=== PATIENT | female | born 1955 | race Caucasian/White ===

== ENCOUNTER 2023-04-17 17:35 | Inpatient (IN) | payer OTHER ==
[~2023-04-17] VITALS: Wt 118.4 kg
[2023-04-17 19:27] LABS: HEMATOCRIT 41.1 % (37.0-47.0); MANUAL DIFF REFLEX YES; MEAN CELL VOLUME 101.5 fl (81.0-99.0); MEAN CORPUSCULAR HGB 31.4 pg (27.0-31.0); MEAN CORPUSCULAR HGB CONC 30.9 g/dl (33.0-37.0); MEAN PLATELET VOLUME 11.7 fl (9.6-12.3); PLATELET COUNT AUTOMATED 197 10*3/uL (130-400); RED BLOOD COUNT 4.05 10*6/uL (4.10-5.10); RED CELL DISTRI WIDTH 16.9 % (0-14.5); WHITE BLOOD COUNT 8.6 10*3/uL (4.8-10.8)
[2023-04-17 19:30] VITALS: BP 169/72
[2023-04-17] MEDS ORDERED: IBUPROFEN600 MG PO (19:31)
[2023-04-17] MEDS ORDERED: Bactroban Oint22 GM NAS (19:32)
[2023-04-17] MEDS ORDERED: METHOCARBAMOL500 M1 PO (19:33)
[2023-04-17] MEDS ORDERED: ATORVASTATIN CA20 M1 PO (19:33)
[2023-04-17] MEDS ORDERED: ANASTROZOLE1 M1 PO (19:34)
[2023-04-17] MEDS ORDERED: LEVOTHYROXINE125 MCG PO (19:35)
[2023-04-17] MEDS ORDERED: MELOXICAM7.5 MG PO (19:35)
[2023-04-17] MEDS ORDERED: Ipratropium Brom3 ML INH (19:36)
[2023-04-17] MEDS ORDERED: POTASSIUM CHLO20 ME4 PO (19:37)
[2023-04-17] MEDS ORDERED: AMLODIPINE BESYL5 MG PO (19:37)
[2023-04-17] MEDS ORDERED: PROPRANOLOL ER80 MG PO (19:38)
[2023-04-17] MEDS ORDERED: PANTOPRAZOLE SO40 MG PO (19:39)
[2023-04-17] MEDS ORDERED: FEOSOL,FER300 MG/5 M PO (19:40)
[2023-04-17] MEDS ORDERED: LACTULOSE10 GM/154 PO (19:40)
[2023-04-17] MEDS ORDERED: ANTIFUNGAL CRE141 GM V (19:42)
[2023-04-17] MEDS ORDERED: ONDANSETRON4 MG PO (19:42)
[2023-04-17] MEDS ORDERED: TYLENOL EXTRA500 MG PO (19:43)
[2023-04-17 19:47] LABS: ALKALINE PHOSPHATASE 215 U/L (46-116); BUN 16 mg/dl (9-23); CHLORIDE 101 mmol/L (98-107); LIPASE 32 U/L (12-53); POTASSIUM 3.6 mmol/L (3.4-5.1); SGPT/ALT 33 U/L (10-49); TOTAL PROTEIN 7.8 gm/dL (6.0-8.0)
[2023-04-17 19:48] LABS: ETHYL ALCOHOL < 3.0 mg/dl (<3)
[2023-04-17 19:48] LABS: BILIRUBIN Negative (Negative); BLOOD Negative (Negative); CLARITY Clear (Clear); COLOR Yellow (Yellow); GLUCOSE Negative (Negative); KETONE 1+ (Negative); LEUKO ESTERASE Negative (Negative); NITRITE Negative (Negative); SPECIFIC GRAVITY 1.015 (1.001-1.030)
[2023-04-17 19:54] LABS: BASOPHILS 1 % (0-1); TOTAL CELLS COUNTED 100 #CELLS
[2023-04-17 19:55] LABS: PLATELET SUFFICIENCY NORMAL (NORMAL)
[2023-04-17 19:55] LABS: URINE AMPHETAMINES Negative (1000ng/ml); URINE BARBITURATES Negative (200ng/ml); URINE BENZODIAZEPINES Negative (200ng/ml); URINE CANNABINOIDS (THC) Negative (50ng/ml); URINE COCAINE Negative (300ng/ml); URINE METHADONE Negative (300ng/ml); URINE OPIATES Negative (300ng/ml); URINE PHENCYCLIDINE Negative (25ng/ml)
[2023-04-17 20:12] LABS: INTERNATIONAL NORM RATIO 1.1 (2.0-3.5)
[2023-04-17 20:14] LABS: BACTERIA 1+
[2023-04-17] MEDS ORDERED: VITAMIN D325 MC1 PO (20:22)
[2023-04-17] MEDS ORDERED: ADV 100/50 INH (20:23)
[2023-04-17] MEDS ORDERED: ATIVAN2 MG/1 ML IJ (20:25)
[2023-04-17] MEDS ORDERED: DOXYCYCLINE HY100 M3 PO (20:26)
[2023-04-17] MEDS ORDERED: [UNRECOGNIZED DRUG - OTHER] T (20:27)
[2023-04-17 23:24] VITALS: BP 159/86
[2023-04-17] MEDS ORDERED: RISPERDAL1 M1 PO (23:57)
[2023-04-18] MEDS ORDERED: PROVENTIL HFA6.7 GM INH (18:25)
[2023-04-18] MEDS ORDERED: ATIVAN2 MG/1 ML IM (18:27)
[2023-04-18] MEDS ORDERED: [UNRECOGNIZED DRUG - OTHER] T (18:34)
[2023-04-22] MEDS ORDERED: PREDNISONE10 MG PO (15:23)
[2023-04-22] MEDS ORDERED: ZITHROMAX TRI-500 M1 PO (15:23)
[2023-05-01] MEDS ORDERED: INVEGA3 MG PO (07:50)
[2023-05-01] MEDS ORDERED: ATIVAN0.5 MG PO (07:51)
[2023-05-01] MEDS ORDERED: REMERON15 M2 PO (07:51)
[2023-05-03] MEDS ORDERED: LEVOFLOXACIN750 M2 PO (12:06)
[2023-05-03] MEDS ORDERED: FEOSOL,FER300 MG/5 M PO (12:06)
== END 2023-04-18 00:31 | disposition short-term general hospital (02) | DRG 885 ==
LOC: ED 17:35 → 3N 20:54 → EDHOLD 20:54 → 3N 22:33
PROVIDERS: Emergency Medicine; ADMIT Psychiatry & Neurology Psychiatry; ATTEND Psychiatry & Neurology Psychiatry
DX: F22 Delusional disorders (principal); F29 Unspecified psychosis not due to a substance or known physiological condition